=== PATIENT | male | born 1965 | race Caucasian/White ===

== ENCOUNTER 2017-06-02 06:31 | Day surgery (SDC) | payer OTHER ==
[2017-06-02] MEDS ORDERED: NS 1,000 ML IV (06:45)
[2017-06-02] MEDS ORDERED: LIDOCAINE 1% MDV 20ML VIAL As Ordered (07:15)
[2017-06-02] MEDS ORDERED: PROPOFOL 200 MG/20 ML VIAL As Ordered (07:15)
== END 2017-06-02 08:26 | disposition home or self-care (01) ==
LOC: M OPP 06:31
DX: Z12.11 Encounter for screening for malignant neoplasm of colon (principal); K57.30 Diverticulosis of large intestine without perforation or abscess without bleeding; I10 Essential (primary) hypertension; E78.5 Hyperlipidemia, unspecified; E66.9 Obesity, unspecified; Z79.82 Long term (current) use of aspirin; Z79.899 Other long term (current) drug therapy; Z80.42 Family history of malignant neoplasm of prostate
CPT/HCPCS: G0121

== ENCOUNTER → 2017-08-30 | Outpatient (CLI) | payer OTHER | LOC: M LRY 18:24 | DX: L03.113 Cellulitis of right upper limb (principal); L03.119 Cellulitis of unspecified part of limb (principal) | CPT/HCPCS: 73130; G0463 ==

== ENCOUNTER → 2020-07-04 | Outpatient (CLI) | payer OTHER ==
[~2020-07-04] MED LIST: ASPI81TA86 PO; LISI20TA33 PO; SIMV10TA21 PO
--- NOTE | 2020-07-07 16:31 | SLEEPCENT ---
NOCTURNAL POLYSOMNOGRAPHY DATE: 07/04/2020 ORDERED BY: LULA Lemos Nocturnal polysomnography was performed for evaluation of sleep physiology in this patient with a history of snoring and an abnormal nocturnal oximetry trace. 7 hours and 33 minutes of data were reviewed. There were 368.5 minutes of sleep identified. Sleep latency was normal at 15 minutes. REM latency was normal at 103 minutes. Sleep architecture was fairly well preserved. There were three REM cycles noted. Overall sleep efficiency was 82.3%. The electrocardiogram showed a sinus rhythm with an average heart rate of 46 beats per minute; rate range 40 to 64. EEG showed normal waveforms for wake and sleep. There were 190 respiratory events identified of 10 seconds in duration or greater for an apnea-hypopnea index of 30.9. The events were obstructive, not exclusive to sleep stage nor body posture. Arousals from respiratory events occurred 13.5 times per hour and oxygen desaturations were seen below 90%. There was some activity noted in the limb leads. Limb movement arousal index, however was only 5. IMPRESSION: Obstructive sleep apnea syndrome (G47.33), apnea-hypopnea index 30.9. RECOMMENDATION: The patient should be encouraged to return to [facility]. In the interim, alcohol and sedative avoidance should be practiced and caution exercised during the operation of motor vehicles.
== END ==
LOC: M SLEEP 20:00
PROVIDERS: ATTEND Physician Assistant
DX: G47.33 Obstructive sleep apnea (adult) (pediatric) (principal)

== ENCOUNTER → 2020-08-09 | Outpatient (CLI) | payer OTHER ==
--- NOTE | 2020-08-11 15:40 | SLEEPCENT ---
NOCTURNAL POLYSOMNOGRAPHY CPAP TITRATION DATE: 08/09/2020 ORDERED BY: LULA Lemos Nocturnal polysomnography was performed for the titration of pressure therapy in this patient with obstructive sleep apnea syndrome with apnea-hypopnea index of 30.9. For testing [employer] nasal pillows of medium size was used, 4 cm of water pressure were applied to the circuit, and the lights were extinguished. 7 hours and 57 minutes of data were reviewed. There were 348.5 minutes of sleep identified. Sleep latency was mildly prolonged at 22 minutes. REM latency was short at 66 minutes. Sleep architecture was fairly good with four REM cycles. There was a period of wake resulting in reduced sleep efficiency of 73.8%. The electrocardiogram showed a sinus rhythm with an average heart rate of 58 beats per minute; rate range 45 to 90. EEG showed normal waveforms for wake and sleep. Respiratory events were fully palliated with CPAP at a pressure of +6 and remaining measures of sleep physiology were normal. IMPRESSION: Obstructive sleep apnea syndrome (G47.33). RECOMMENDATION: Nightly use of pressure therapy 6 cm of water.
== END ==
LOC: M SLEEP 20:00
PROVIDERS: ATTEND Physician Assistant
DX: G47.33 Obstructive sleep apnea (adult) (pediatric) (principal)